=== PATIENT | male | born 1940 | race Caucasian/White ===

== ENCOUNTER 2022-09-26 21:09 | Inpatient (IN) | payer MEDICARE, BC ==
[~2022-09-26] VITALS: Ht 175.3 cm; Wt 81.6 kg
--- NOTE | 2022-09-26 21:42 | NUR ---
[id number] FRM HOME FOR AMS , INITIAL BG 44 250 OF D10 VIA IV GIVEN BG 110 AT TRIAGE AWAKE AND ALERTX4 ANSWERING ALL QUESTIONS APPROPRIATELY. CHANGED INTO GOWN AND PLACED ON MONITOR AND V/S WNL.
--- NOTE | 2022-09-26 21:43 | NUR ---
COVID SWAB COLLECTED
--- NOTE | 2022-09-26 21:46 | NUR ---
BLOOD COLLECTED AND SENT TO LAB
--- NOTE | 2022-09-26 21:49 | NUR ---
EMT AT BEDSIDE FOR EKG
--- NOTE | 2022-09-26 21:50 | NUR ---
RODNEY Ledbetter MD AWARE.
--- NOTE | 2022-09-26 21:50 | NUR ---
FOOD PROVIDED TO PT
[2022-09-26 22:00] LABS: BASOPHILS % (AUTO) 0.3 % (0.0-2.0); EOSINOPHILS % (AUTO) 0.5 % (0.0-6.0); HEMATOCRIT 37 % (39-51); HEMOGLOBIN 11.8 g/dL (13.5-17.5); LYMPHOCYTES # (AUTO) 0.8 K/uL (0.8-4.8); LYMPHOCYTES % (AUTO) 11.6 % (20.0-44.0); MEAN CORPUSCULAR HGB CONC 32 g/dl (31.0-36.0); MEAN CORPUSCULAR VOLUME 83 fL (80-96); MONOCYTES # (AUTO) 0.7 K/uL (0.1-1.30); MONOCYTES % (AUTO) 10.8 % (2.0-12.0); NEUTROPHILS # (AUTO) 5.2 K/uL (1.8-8.9); NEUTROPHILS % (AUTO) 76.8 % (43.0-81.0); PLATELET COUNT (AUTO) 266 K/uL (150-450); RED BLOOD CELL COUNT(AUTO) 4.44 MIL/uL (4.5-6.0); WHITE BLOOD COUNT (AUTO) 6.8 K/uL (4.3-11.0)
--- NOTE | 2022-09-26 22:03 | NUR ---
TAKEN TO CT VIA JOSE RAUL
[2022-09-26 22:13] LABS: SERUM AMMONIA 14 umol/L (11-32)
[2022-09-26 22:16] LABS: CALCIUM, SERUM 8.9 mg/dL (8.5-10.1); CARBON DIOXIDE 25 mmol/L (21-32); CHLORIDE 106 mmol/L (98-107); CREATININE 2.6 mg/dL (0.6-1.3); GLUCOSE 56 mg/dL (74-106); POTASSIUM 3.4 mmol/L (3.5-5.1); SODIUM SERUM 142 mmol/L (136-145); UREA NITROGEN, BLOOD 32 mg/dL (7-18)
[2022-09-26 22:20] LABS: ALANINE AMINOTRANSFERASE 37 U/L (12-78); ALBUMIN 3.8 g/dL (3.4-5.0); ALCOHOL, BLOOD < 3 mg/dL (0-0); ALKALINE PHOSPHATASE 47 U/L (46-116); ASPARTATE AMINOTRANSFERASE 25 U/L (15-37); BILIRUBIN,DIRECT 0.2 mg/dL (0.0-0.2); BILIRUBIN,TOTAL 0.3 mg/dL (0.2-1.0); TOTAL PROTEIN, SERUM 7.4 g/dL (6.4-8.2)
[2022-09-26 22:22] LABS: ACETAMINOPHEN 0 ug/ml (10-30)
[2022-09-26 22:25] LABS: THYROID STIMULATING HORMONE 2.008 uIU/mL (0.358-3.74)
--- NOTE | 2022-09-26 22:43 | NUR ---
PATIENT AT HALF SANDWITCH AND 2 ORANGE JUICE. POC BG RECHECK 38. MADE AWARE.
[2022-09-26] MEDS ORDERED: DEXTROSE 50%-WATER 50 ML DISP.SYRIN ONE (22:48)
[2022-09-26] MEDS ORDERED: Sodium Chloride 77 MEQ in IV 10% DEXTROSE 1,000 ML IV PRN (23:00)
[2022-09-26] MEDS ORDERED: DEXTROSE 50%-WATER 50 ML DISP.SYRIN IVP ONE (23:00)
--- NOTE | 2022-09-26 23:08 | NUR ---
DR THEODORE ON PHONE WITH DR STERLING
--- NOTE | 2022-09-26 23:10 | NUR ---
PATIENT ATE ANOTHER SANDWITCH AND ONE ORANGE JUICE. TOLERATING WELL AWAKE AND ALERTX4
--- NOTE | 2022-09-26 23:14 | NUR ---
NS 77MEQ IN 10% DEXTROSE 1000ML UNAVAILABLE AT THIS TIME. 5% DEXTROSE IN 0.45% SODIUM CHLORIDE OKAY BY MD THEODORE.
--- NOTE | 2022-09-26 23:23 | NUR ---
REPEAT POC BG 147. MADE AWARE.
--- NOTE | 2022-09-26 23:26 | NUR ---
DR. THEODORE ON THE PHONE WITH DR. LONG.
[2022-09-26 23:56] LABS: BILIRUBIN,URINE NEGATIVE (NEGATIVE); COLOR,URINE YELLOW (YELLOW); LEUKOCYTE ESTERASE ,URINE NEGATIVE (NEGATIVE); NITRITE, URINE NEGATIVE (NEGATIVE); PH,URINE 5.5 (5.0-8.0); PROTEIN,URINE 1+ mg/dl (NEGATIVE); UGLUCOSE NEGATIVE (NEGATIVE); UROBILINOGEN,URINE 0.2 EU/dL (0.2)
[2022-09-27] MEDS ORDERED: ACETAMINOPHEN 325 MG TABLET PO PRN
[2022-09-27] MEDS ORDERED: MAG HYDROX/AL HYDROX/SIMETH 30 ML UDC PO PRN
[2022-09-27] MEDS ORDERED: CLONIDINE HCL 0.1 MG TABLET PO PRN
[2022-09-27] MEDS ORDERED: Z GUARD REMEDY 4 OZ OINT TP PRN
[2022-09-27] MEDS ORDERED: MAGNESIUM HYDROXIDE 30 ML UDC PO PRN
[2022-09-27] MEDS ORDERED: ONDANSETRON HCL/PF 4 MG/2 ML VIAL IVP PRN
--- NOTE | 2022-09-27 00:17 | NUR ---
DEXTROSE INFUSION INCREASED TO 150ML/HR PER DR THEODORE
--- NOTE | 2022-09-27 01:21 | NUR ---
REPORT GIVEN TO TARA
--- NOTE | 2022-09-27 01:30 | NUR ---
RN NOTES: REPORT GIVEN BY MEDINA/TATIANA FROM ER.
[2022-09-27 02:00] VITALS: BP 164/89
--- NOTE | 2022-09-27 02:09 | NUR ---
PT TRANSPORTED TO [address] [place] [address] IN STABLE CONDITION
--- NOTE | 2022-09-27 02:10 | NUR ---
RN NOTES: NEW ADMIT FROM HOME AT 0200,ARRIVED IN ER AT 2138, BROUGHT VIA AMBULANCE FROM HOME WITH C/O LOW BLOOD SUGAR 44, AMS, AND NO APPETITE TO EAT, HE RECEIVED D10% 250 ML, CHECK IN ER BS-110, HE WAS GIVEN SNACK HIS BS DROP TO 51, AGAIN FOOD GIVEN IT WENT DOWN TO 38, IV CANNULA ON THE RAC G#18 AND LH #20, IVF STARTED OF D5%1/2 NS AT 125 ML/HR, LATEST BS-96. 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, DIABETIC ON TREATMENT, DX:HYPOGLYCEMIA, ALSO KNOWN CASE OF CHRONIC LOWER BACK PAIN, KIDNEY PROBLEM, LABS DONE K-3.4, CXR-NO ACUTE DISEASE, [id number]- REFEREED TO (NEURO) WHILE HE WAS IN ER, CHROMIC IN NATURE NO SX INTERVENTION NEEDED,MED LIST TO BE FOLLOWED UP WITH FAMILY IN THE MORNING.HE FEELS SLEEPY, BODY CHECKED DONE: 1)SKIN DISCOLORATION, OLD IV SITE AND OLD SCAB ON THE LEFT UPPER ARM 2)FATTY TISSUE ON THE LEFT FOOT 3)MULTIPLE OLD SCAB ON THE RIGHT AND LEFT LOWER EXTREMITY (OLD AND HEALING) 4)OLD SURGICAL SITE -MID BACK --ORIENTED TO UNIT ND STAFF, VERY COOPERATIVE TO CARE, O2 AT 2L.MIN VIA NC SPO2-96%, NO SOB, NON LABORED BREATHING, NO PAIN OR DISCOMFORT, NO N/V, NO HEADACHE, NO DIZZINESS, HE SAID "I FEEL BETTER NOW, I JUST WANT TO SLEEP PLEASE" VERBALIZED HE COMPLETE PNA, FLU AND COVID VACCINE-[employer] WITH 2 BOOSTER DOSE, UNABLE TO RECALL EXACT DATE.
--- NOTE | 2022-09-27 02:38 | NUR ---
RN NOTES: BP-164/89, CATAPRES 0.1 MG GIVEN FOR SBP>150.
--- NOTE | 2022-09-27 04:05 | NUR ---
RN NOTES: ABLE TO REST AND SLEEP.IVF ONGOING.SAFETY PRECAUTION OBSERVED, KEPT CALL LIGHT WITHIN EASY REACH.
[2022-09-27 05:47] LABS: BASOPHILS % (AUTO) 0.2 % (0.0-2.0); EOSINOPHILS % (AUTO) 0.6 % (0.0-6.0); HEMATOCRIT 34 % (39-51); HEMOGLOBIN 10.8 g/dL (13.5-17.5); LYMPHOCYTES # (AUTO) 1.3 K/uL (0.8-4.8); LYMPHOCYTES % (AUTO) 20.4 % (20.0-44.0); MEAN CORPUSCULAR HGB CONC 32 g/dl (31.0-36.0); MEAN CORPUSCULAR VOLUME 84 fL (80-96); MONOCYTES # (AUTO) 0.9 K/uL (0.1-1.30); MONOCYTES % (AUTO) 13.5 % (2.0-12.0); NEUTROPHILS # (AUTO) 4.3 K/uL (1.8-8.9); NEUTROPHILS % (AUTO) 65.3 % (43.0-81.0); PLATELET COUNT (AUTO) 244 K/uL (150-450); RED BLOOD CELL COUNT(AUTO) 4.03 MIL/uL (4.5-6.0); WHITE BLOOD COUNT (AUTO) 6.6 K/uL (4.3-11.0)
--- NOTE | 2022-09-27 06:14 | NUR ---
RN NOTES: BLOOD SUGAR CHECKED- 62, GIVEN ORANGE JUICE, APPLE JUICE AND ROZ CRACKERS, NO COMPLAINTS OF ANY SIGN OF HYPOGLYCEMIA, IVF CONTINUE.
[2022-09-27 06:16] LABS: CALCIUM, SERUM 8.6 mg/dL (8.5-10.1); CARBON DIOXIDE 24 mmol/L (21-32); CHLORIDE 105 mmol/L (98-107); CREATININE 2.3 mg/dL (0.6-1.3); GLUCOSE 70 mg/dL (74-106); MAGNESIUM 1.9 mg/dL (1.8-2.4); PHOSPHORUS 4.1 mg/dL (2.5-4.9); POTASSIUM 3.6 mmol/L (3.5-5.1); SODIUM SERUM 137 mmol/L (136-145); UREA NITROGEN, BLOOD 28 mg/dL (7-18)
[2022-09-27 07:00] VITALS: BP 124/64
--- NOTE | 2022-09-27 07:37 | NUR ---
RN NOTES: LATEST BP-142/72, ASYMPTOMATIC, HE SAID HE JUST FEEL TIRED, REMAIN A/OX4, ENCOURAGE TO EAT AND DRINK, FOR LABS THIS MORNING, FOR PT EVAL, TO F/U MEDS AT HOME AND NEURO F/U ,ENDORSED FOR CONTINUITY OF CARE.
--- NOTE | 2022-09-27 07:40 | NUR ---
ms rn received on bed, awake,alert,oriented x4,not in any form of distress, respirations even and unlabored,no sob noted, on 2liters o2, saturating well,denies pain at this time, came in w/ hypoglycemia, on d10 dextose running at right ac,will monitor patient.
[2022-09-27 08:00] VITALS: BP 124/64
[2022-09-27] MEDS: Sodium Chloride 154 MEQ in IV 10% DEXTROSE 1,000 ML IV SCH ×2 (08:36→22:06)
[2022-09-27] MEDS ORDERED: GLIP10TA11 PO (09:46)
[2022-09-27] MEDS ORDERED: ASPI-1420 PO (09:46)
[2022-09-27] MEDS ORDERED: GABA300C PO (09:46)
[2022-09-27] MEDS ORDERED: SIMV-46 PO (09:46)
[2022-09-27] MEDS ORDERED: AMLO-212 PO (09:46)
[2022-09-27] MEDS ORDERED: FOLI0.8T2 PO (09:46)
[2022-09-27] MEDS ORDERED: METH500T6 PO (09:46)
--- NOTE | 2022-09-27 10:00 | NUR ---
ms rn was seen by residential property manager, reminded to reconcile meds, no accucheck order,all needs attended.
[2022-09-27] MEDS ORDERED: GLUCAGON,HUMAN RECOMBINANT 1 MG/VIAL VIAL IM ONE (10:30)
--- NOTE | 2022-09-27 17:26 | NUR ---
ms rn texted matilda to reconcile meds and accucheck order.
[2022-09-27] MEDS ORDERED: DEXTROSE 50%-WATER 50 ML DISP.SYRIN IV PRN (18:00)
[2022-09-27] MEDS: BLOOD SUGAR DIAGNOSTIC 1 EACH STRIP IN SCH ×2 (18:08→22:20)
--- NOTE | 2022-09-27 18:10 | NUR ---
ms nr blood sugar - 143 - did not gave coverage, patient has sever hypoglycemia last night, no s/s lo hyperglycemia noted.
--- NOTE | 2022-09-27 19:45 | NUR ---
MS RN OPENING NOTE RECEIVED PATIENT IN BED; AWAKE, A/O X 4. ON O2 INHALATION @ 2 LPM VIA NASAL CANNULA TOLERATING WELL. NOT IN ANY FORM OF RESPIRATORY OR CARDIAC DISTRESS. DENIES ANY PAIN OR DISCOMFORT AT THIS TIME. WITH IV ACCESS ON LEFT HAND 20g; PATENT, INTACT AND SL. WITH ONGOING IV FLUIDS OF NA CL 154 mEq IN D10% 1L ON RIGHT AC; RUNNING @ 75 ML/HR; FLUSHES WELL. ABLE TO MAKE NEEDS KNOWN. SAFETY MEASURES IMPLEMENTED: CALL LIGHT AND TABLE WITHIN REACH, SIDE RAILS UP X 2, BED IN LOWEST LOCKED POSITION. WILL CONTINUE PLAN OF CARE.
[2022-09-27 20:00] VITALS: BP 126/67
[2022-09-27 20:30] VITALS: BP 126/67
[2022-09-27] MEDS: INSULIN REGULAR, HUMAN 100 UNIT/ML 3 ML VIAL SQ PRN (22:43)
[2022-09-27 22:50] LABS: BILIRUBIN,URINE NEGATIVE (NEGATIVE); COLOR,URINE YELLOW (YELLOW); LEUKOCYTE ESTERASE ,URINE NEGATIVE (NEGATIVE); NITRITE, URINE NEGATIVE (NEGATIVE); PROTEIN,URINE 1+ mg/dl (NEGATIVE); UGLUCOSE NEGATIVE (NEGATIVE); UROBILINOGEN,URINE 0.2 EU/dL (0.2)
[2022-09-27 23:14] LABS: BACTERIA,URINE None seen /HPF (None Seen); RBC,URINE 0-2 /HPF (0-2); SQUAMOUS EPITHELIAL CELL,UR Few /HPF (None Seen); WBC,URINE NONE SEEN /HPF (0-3)
[2022-09-28 05:53] LABS: CREATININE, URINE 59.2 MG/DL (30.0-125.0)
[2022-09-28] MEDS: BLOOD SUGAR DIAGNOSTIC 1 EACH STRIP IN SCH ×2 (06:22→12:03)
[2022-09-28] MEDS: INSULIN REGULAR, HUMAN 100 UNIT/ML 3 ML VIAL SQ PRN ×2 (06:25→12:10)
--- NOTE | 2022-09-28 06:45 | NUR ---
MS RN CLOSING NOTE PATIENT IN BED; AWAKE, A/O X 4. STILL ON O2 INHALATION @ 2 LPM VIA NC; WELL TOLERATED. IN NO ACUTE DISTRESS. NO C/O ANY PAIN OR DISCOMFORT. WITH IV ACCESS ON LEFT HAND 20g; PATENT, INTACT AND SL. WITH ONGOING IVF OF NACL 154 mEq IN D10% 1L ON RIGHT AC; RUNNING @ 75 ML/HR; FLUSHES WELL. ALL NEEDS ATTENDED. SAFETY PRECAUTIONS MAINTAINED: CALL LIGHT AND TABLE WITHIN REACH, SIDE RAILS UP X 2, BED IN LOWEST LOCKED POSITION. ENDORSED TO MORNING SHIFT FOR SAMIR.
[2022-09-28 07:00] VITALS: BP 136/70
--- NOTE | 2022-09-28 07:28 | NUR ---
RN OPENING NOTE RECEIVED PATIENT IN BED, AWAKE, A/O X4, VERBALLY RESPONSIVE AND ABLE TO MAKE NEEDS KNOWN. ON O2 INHALATION @ 2LPM VIA N/C, NO SOB NOTED, BREATHING EVEN AND UNLABORED. DENIES ANY PAIN AT THIS TIME. NOTED WITH IV ACCESS ON RIGHT ANTECUBITAL AREA #18G, INTACT AND PATENT WITH NACL 154 MEQ IN D10W RUNNING AT 75ML/HR. NO S/SX OF HYPOGLYCEMIA NOTED. SAFETY MEASURE IN PLACE. BED IN LOW AND LOCKED POSITION. SIDE RAILS UP X2, CALL LIGHT PLACED WITHIN EASY REACH. WILL CONTINUE TO MONITOR PATIENT.
[2022-09-28] MEDS ORDERED: METHOCARBAMOL (500MG) 500 MG TABLET PO PRN (14:30)
--- NOTE | 2022-09-28 14:31 | NUR ---
Patient refused the procedure
[2022-09-28] MEDS ORDERED: SITA50TA PO (14:57)
--- NOTE | 2022-09-28 15:31 | NUR ---
POLEYARD SUPERVISOR NOTE PATIENT DISCHARGED HOME, IN STABLE CONDITION. PATIENT REMAINS AWAKE, A/O X4, ABLE TO MAKE NEEDS KNOWN. IV ACCESS REMOVED, NO BLEEDING NOTED, PRESSURE DRESSING APPLIED TO SITE. ALL BELONGINGS ACCOUNTED FOR, FORM SIGNED BY PATIENT. VITAL SIGNS TAKEN, STABLE. HEALTH TEACHINGS AND DISCHARGE INSTRUCTIONS PROVIDED WITH VERBALIZATION OF UNDERSTANDING. PATIENT LEFT UNIT @1528. ACCOMPANIED BY MALKA ROWELL VIA W/C TO THE LOBBY. PATIENT PICKED UP BY AND DAUGHTER VIA PRIVATE CAR. CN AWARE OF DISCHARGE.
[2022-09-28] MEDS ORDERED: GABAPENTIN 300 MG CAPSULE PO SCH (17:00)
[2022-09-28] MEDS ORDERED: SIMVASTATIN 20 MG TABLET PO SCH (18:00)
[2022-09-28] MEDS ORDERED: ASPIRIN EC 81 MG TABLET.DR PO SCH (18:00)
[2022-09-29] MEDS ORDERED: VIT B CMPLX 3/FA/VIT C/BIOTIN 1 TAB TABLET PO SCH (09:00)
[2022-09-29] MEDS ORDERED: AMLODIPINE BESYLATE 5 MG TABLET PO SCH (09:00)
== END 2022-09-28 15:30 | disposition home or self-care (01) | DRG 637 ==
LOC: ER 21:18 → MED 09-27 00:42
PROVIDERS: ADMIT Internal Medicine; ATTEND Nurse Practitioner Acute Care
DX: E11.649 Type 2 diabetes mellitus with hypoglycemia without coma (principal); E43 Unspecified severe protein-calorie malnutrition; G93.41 Metabolic encephalopathy; G93.6 Cerebral edema; E87.6 Hypokalemia; E88.09 Other disorders of plasma-protein metabolism, not elsewhere classified; I12.9 Hypertensive chronic kidney disease with stage 1 through stage 4 chronic kidney disease, or unspecified chronic kidney disease; G89.29 Other chronic pain; N17.0 Acute kidney failure with tubular necrosis; N18.4 Chronic kidney disease, stage 4 (severe); E11.22 Type 2 diabetes mellitus with diabetic chronic kidney disease; M19.90 Unspecified osteoarthritis, unspecified site; Z79.84 Long term (current) use of oral hypoglycemic drugs; Z20.822 Contact with and (suspected) exposure to COVID-19; D32.9 Benign neoplasm of meninges, unspecified; Z68.26 Body mass index [BMI] 26.0-26.9, adult; R63.0 Anorexia; Z96.82 Presence of neurostimulator
CPT/HCPCS: 36415; 70450-TC; 71045-TC; 80048-TC; 80076-TC; 81001; 82140-TC; 82570-TC; 82962-TC; 83735-TC; 84100-TC; 84300-TC; 84443-TC; 84484-TC; 85025-TC; 85730-TC; 87081-TC; C9803; G0378; G0480; J1610; J1815; J3490